=== PATIENT | male | born 1965 | race Caucasian/White ===

== ENCOUNTER 2023-01-08 10:01 | Day surgery (SDC) | payer OTHER ==
--- NOTE | 2023-01-08 07:48 | HP ---
DATE OF SURGERY: 01/08/2023 HISTORY OF PRESENT ILLNESS: The patient is a 57-year-old with history of polyps five years ago. No bloody stools. No change in bowel habits. No new pain. Family history of uncle who passed in his 50's with colon cancer. PAST MEDICAL HISTORY: Arthritis, hypertension, gastroesophageal reflux disease. PAST SURGICAL HISTORY: Appendectomy. Total left hip replacement. MEDICATIONS: Multivitamin 50+, metoprolol, losartan. ALLERGIES: LISINOPRIL. FAMILY HISTORY: Diabetes. SOCIAL HISTORY: No smoking. Occasional alcohol use. REVIEW OF SYSTEMS: Fourteen systems reviewed. No chest pain or palpitations. Other systems negative or noncontributory as above and per preadmission questionnaire. PHYSICAL EXAMINATION: Height 5'7". BMI 29.76. GENERAL: No acute distress. HEENT: Sclerae nonicteric. EOMI. Oral mucous membranes moist. NECK: No JVD. CHEST: Equal excursion, nonlabored breathing. CVS: Regular rate and rhythm. ABDOMEN: Soft. EXTREMITIES: No significant edema. NEURO: Alert, oriented, moving extremities symmetrically. RECTAL: Deferred timed to endoscopy exam. PSYCH: Appropriate mood and affect. SKIN: Dry. IMPRESSION: History of polyps, needs follow up screening colonoscopy. I feel he is a candidate. He was explained the procedure in detail including but not limited to risk of bleeding or infection, risk of bowel injury or perforation, risk of missed or nondiagnosis or incomplete exam possibly requiring barium enema, other studies or procedures, general risk of anesthesia or sedation. Will proceed with outpatient colonoscopy under MAC anesthesia. Otherwise, he will continue his medications for his hypertension and rheumatoid arthritis.
[2023-01-08 10:28] VITALS: RESP 16
[2023-01-08] MEDS: Lactated Ringers 1,000 ML IV SCH (10:39)
[2023-01-08] MEDS ORDERED: DIPRIVAN 200 MG/20 ML IV ONE ×2 (11:36→11:58)
[2023-01-08] MEDS ORDERED: Xylocaine-Mpf 2% 5 Ml Vial ONE (11:36)
[2023-01-08] MEDS ORDERED: Versed 2 MG/2 ML Injection ONE (11:47)
[2023-01-08] MEDS ORDERED: ROBINUL ONE (11:55)
[2023-01-08 12:52] VITALS: BP 116/79; PULSE 80; TEMP 98.3; O2SAT 95
--- NOTE | 2023-01-09 09:34 | OP ---
SURGERY DATE/TIME: 01/08/2023 1140 PREOPERATIVE DIAGNOSIS: History of polyps, needs follow up screening colonoscopy. POSTOPERATIVE DIAGNOSES: 1) Small polyp. 2) Diverticulosis left colon. 3) ASA Class III. 4) Good prep. 5) Withdrawal time approximately ten minutes. PROCEDURES: 1) Colonoscopy to cecum. 2) Hot biopsy polypectomy transverse colon polyps x2. 3) Hot biopsy polypectomy rectal polyp x1. SURGEON: Dr. Cristóbal Ross. ANESTHESIA: MAC. ESTIMATED BLOOD LOSS: Minimal. INDICATIONS: As noted above. Risks and benefits explained in detail but not limited to and consent obtained. DESCRIPTION OF PROCEDURE AND FINDINGS: The patient is taken to the endoscopy room. MAC anesthesia induced. After official time out and no disagreement with planned procedure, digital rectal exam did not reveal any rectal masses. He did have some minimal internal hemorrhoids. Video colonoscope inserted and passed up through the slightly tortuous sigmoid, descending, transverse, ascending colon around to the cecum. Appendiceal orifice and valve well visualized and photo documented. Over all good prep. The scope is carefully withdrawn over the next seven minutes. Small polyps x2 in the transverse colon removed with hot biopsy forceps with brief bursts of cautery. Small polyp in the rectum removed with hot biopsy polypectomy. Otherwise no signs of any large polyps, masses or obstructing lesion. He did have some mild diverticulosis left colon. No signs of any large polyps, masses or obstruction lesion. The scope is withdrawn. There was no family to discuss the findings with.
== END 2023-01-08 13:03 | disposition home or self-care (01) ==
LOC: EDBD → SDC 10:01
PROVIDERS: ATTEND Surgery
DX: Z12.11 Encounter for screening for malignant neoplasm of colon (principal); Z86.010 Personal history of colon polyps; Z80.0 Family history of malignant neoplasm of digestive organs; D12.3 Benign neoplasm of transverse colon; K57.30 Diverticulosis of large intestine without perforation or abscess without bleeding; K64.8 Other hemorrhoids
CPT/HCPCS: J2250; J2704